=== PATIENT | male | born 1970 | race Caucasian/White ===

== ENCOUNTER 2018-01-28 13:56 | Emergency (ER) | payer MEDICAID ==
[~2018-01-28] VITALS: Ht 188 cm; Wt 151.0 kg
[~2018-01-28 13:56] MED LIST: AMLO5TAB2 PO; ASPI-621 PO; ATOR20TA9 PO; CARV-39 PO; CHLO25TA PO; ENAL20TA PO; FURO40TA6 PO; LISI-170 PO; METO25TA35 PO; POTA20PA25 PO; SPIR25TA PO
[2018-01-28 14:03] VITALS: BP 119/77
== END 2018-01-28 15:06 | disposition home or self-care (01) ==
LOC: MERGE 14:30 → ED 14:30
DX: H10.32 Unspecified acute conjunctivitis, left eye (principal); J06.9 Acute upper respiratory infection, unspecified; I10 Essential (primary) hypertension
CPT/HCPCS: 99283

== ENCOUNTER 2018-02-13 12:20 | Emergency (ER) | payer MEDICAID ==
[~2018-02-13] VITALS: Ht 185.4 cm; Wt 143.1 kg
[2018-02-13] MEDS ORDERED: PROPARACAINE OPHTH 0.5%, 15ML EACHEYE ONE (13:30)
[2018-02-13] MEDS ORDERED: FLUORESCEIN OPHTHALMIC 1 MG STRIP EACHEYE ONE (13:30)
[2018-02-13] MEDS ORDERED: FLUORESCEIN OPHTHALMIC 1 MG STRIP ONE (13:32)
[2018-02-13] MEDS ORDERED: PROPARACAINE OPHTH 0.5%, 15ML ONE (13:32)
[2018-02-13 13:57] VITALS: BP 166/109
== END 2018-02-13 14:33 | disposition home or self-care (01) ==
LOC: ED 13:20
DX: S05.02XA Injury of conjunctiva and corneal abrasion without foreign body, left eye, initial encounter (principal); X58.XXXA Exposure to other specified factors, initial encounter; H10.32 Unspecified acute conjunctivitis, left eye; I10 Essential (primary) hypertension; E11.9 Type 2 diabetes mellitus without complications; I25.2 Old myocardial infarction; I50.9 Heart failure, unspecified; Y93.89 Activity, other specified; Y99.8 Other external cause status; Y92.89 Other specified places as the place of occurrence of the external cause
CPT/HCPCS: 99283

== ENCOUNTER 2019-01-14 03:47 | Inpatient (IN) | payer BC, OTHER ==
[~2019-01-14] VITALS: Ht 188 cm; Wt 135.0 kg
[~2019-01-14 03:47] MED LIST changes: +AMLO-150 PO; -AMLO5TAB2 PO; -ASPI-621 PO; +ASPI81TA45 PO; +ATOR20TA37 PO; -ATOR20TA9 PO
--- NOTE | 2019-01-14 04:31 | NUR ---
FIRST CONTACT WITH PT. PT C/O BILATERAL LEG SWELLING X A FEW WEEKS AND REDNESS X A FEW MONTHS. PT ALSO C/O SOB/HTN. PT'S DENIES ANY PAIN/N/V/D AT THIS TIME. SINUS TACHY ON CARDIAC MONITORS RATE 90'S AT THIS TIME. PT'S AOX4. RESPS EVEN AND UNLABORED. ALL MONITORS IN PLACE. CALL LIGHT WITHIN REACH. AWAITING EDMD ASSESSMENT AT THIS TIME.
--- NOTE | 2019-01-14 04:38 | NUR ---
PT WAS SUPPOSE TO TAKE ALL HOME MEDS FOR HTN BUT HE HASN'T TAKEN THEM FOR 1 YEAR.
[2019-01-14 05:25] LABS: BASOPHILS # (AUTO) 0.02 x10^3/uL (0-0.1); BASOPHILS % (AUTO) 0 % (0-1); EOSINOPHILS # (AUTO) 0.13 x10^3/uL (0-0.4); EOSINOPHILS % (AUTO) 2 % (1-7); LYMPHOCYTES # (AUTO) 1.33 x10^3/uL (1-3.4); LYMPHOCYTES % (AUTO) 20 % (22-44); MD NO; MEAN CORPUSCULAR HEMOGLOBIN 28.5 pg (27.5-34.5); MEAN CORPUSCULAR HGB CONC 32.4 g/dL (33.2-36.2); MEAN CORPUSCULAR VOLUME 87.9 fL (81-97); MEAN PLATELET VOLUME 9.8 fL (7.4-10.4); MONOCYTES # (AUTO) 0.43 x10^3/uL (0.2-0.8); MONOCYTES % (AUTO) 7 % (2-9); NEUTROPHILS % (AUTO) 72 % (42-75); PLATELET COUNT 191 x10^3/uL (130-400); RED BLOOD COUNT 5.53 x10^6/uL (4.38-5.82); RED CELL DISTRIBUTION WIDTH 15.3 % (9.4-14.8)
[2019-01-14] MEDS ORDERED: NITROGLYCERIN OINT 2%, 1GM TP ONE ×2 (05:25→05:30)
[2019-01-14] MEDS ORDERED: FUROSEMIDE 20 MG/2 ML ONE (05:25)
[2019-01-14 05:28] LABS: INTERNATIONAL NORMALIZED RATIO 1.35 (0.93-1.1); PROTHROMBIN TIME 14.1 Seconds (9.6-11.5)
[2019-01-14 05:30] LABS: ALBUMIN 3.1 g/dL (3.4-5.0); ANION GAP 7 mmol/L (5-15); CALCIUM 8.3 mg/dL (8.5-10.1); CHLORIDE 106 mmol/L (98-107)
[2019-01-14] MEDS ORDERED: FUROSEMIDE 40 MG/4 ML IV ONE (05:30)
--- NOTE | 2019-01-14 05:35 | NUR ---
PT MEDICATED PER EMAR. PT TOLERATED WELL. PT'S AOX4. RESPS EVEN AND UNLABORED.
[2019-01-14 05:37] LABS: ALANINE AMINOTRANSFERASE 38 U/L (12-78); ALKALINE PHOSPHATASE 68 U/L (45-117); BILIRUBIN,TOTAL 1.1 mg/dL (0.2-1.0); CREATININE 1.11 mg/dL (0.7-1.3)
[2019-01-14 05:39] LABS: TROPONIN I 0.175 ng/mL (0.000-0.045)
[2019-01-14] MEDS ORDERED: ASPIRIN 81 MG TABLET CHEW ONE (05:41)
--- NOTE | 2019-01-14 05:43 | NUR ---
PT MEDICATED PER EMAR. PT TOLERATED WELL.
--- NOTE | 2019-01-14 05:46 | NUR ---
PT PROVIDED URINAL. PT VOIDING AT BEDSIDE AT THIS TIME.
[2019-01-14] MEDS ORDERED: ASPIRIN 81 MG TABLET CHEW PO ONE (06:00)
--- NOTE | 2019-01-14 06:19 | NUR ---
PT SITTING IN [facility]. PT'S AOX4. RESPS EVEN AND UNLABORED. ALL MONITORS IN PLACE. CALL LIGHT WITHIN REACH.
--- NOTE | 2019-01-14 06:48 | NUR ---
REPORT GIVEN TO NORI COWART.
--- NOTE | 2019-01-14 06:50 | NUR ---
REPORT FROM MABLE COWART. PT IS SITTING AT THE SIDE OF THE MED, RESPIRATIONS EQUAL AND NON LABORED. NAD. PT IS CONNECTED TO THE MONITOR. CALL LIGHT WITHIN REACH.
--- NOTE | 2019-01-14 07:28 | NUR ---
HOSPITALIST AT BEDSIDE.
[2019-01-14] MEDS ORDERED: ONDANSETRON ODT 4 MG PO PRN (07:30)
[2019-01-14] MEDS ORDERED: ONDANSETRON 2MG/ML, 2ML IVPush PRN (07:30)
--- NOTE | 2019-01-14 07:37 | NUR ---
REPORT GIVEN TO DASIA COWART.
--- NOTE | 2019-01-14 07:43 | NUR ---
LAB AT BEDSIDE.
[2019-01-14 08:03] VITALS: BP 188/92
[2019-01-14 08:08] LABS: HEMOGLOBIN A1C 11.7 % (4.2-6.3)
[2019-01-14] MEDS: FUROSEMIDE 40 MG/4 ML IV SCH ×2 (08:29→16:21)
[2019-01-14] MEDS: LISINOPRIL 10 MG TABLET PO SCH ×2 (08:30→20:43)
[2019-01-14] MEDS: POTASSIUM CHLORIDE 20 MEQ TAB.ER.PRT PO SCH ×2 (08:30→16:21)
[2019-01-14] MEDS: ENOXAPARIN 40 MG/0.4 ML SQ SCH (08:33)
[2019-01-14] MEDS: CARVEDILOL 6.25 MG TABLET PO SCH ×2 (08:33→16:21)
[2019-01-14] MEDS: INSULIN LISPRO 100 UNITS/ML, PEN SQ-INSULIN SCH ×4 (09:09→20:44)
[2019-01-14 11:37] VITALS: BP 132/78
[2019-01-14 13:54] VITALS: BP 144/97
[2019-01-14 16:16] VITALS: BP 152/89
[2019-01-14 17:50] LABS: TROPONIN I 0.145 ng/mL (0.000-0.045)
[2019-01-14 19:37] VITALS: BP 139/87
[2019-01-15 00:56] VITALS: BP 147/97
[2019-01-15 05:26] LABS: BASOPHILS # (AUTO) 0.02 x10^3/uL (0-0.1); BASOPHILS % (AUTO) 0 % (0-1); EOSINOPHILS # (AUTO) 0.15 x10^3/uL (0-0.4); EOSINOPHILS % (AUTO) 2 % (1-7); LYMPHOCYTES # (AUTO) 1.74 x10^3/uL (1-3.4); LYMPHOCYTES % (AUTO) 28 % (22-44); MD NO; MEAN CORPUSCULAR HEMOGLOBIN 28.8 pg (27.5-34.5); MEAN CORPUSCULAR HGB CONC 32.5 g/dL (33.2-36.2); MEAN CORPUSCULAR VOLUME 88.5 fL (81-97); MONOCYTES # (AUTO) 0.42 x10^3/uL (0.2-0.8); MONOCYTES % (AUTO) 7 % (2-9); NEUTROPHILS # (AUTO) 3.98 x10^3/uL (1.8-6.8); NEUTROPHILS % (AUTO) 63 % (42-75); PLATELET COUNT 191 x10^3/uL (130-400); RED BLOOD COUNT 5.74 x10^6/uL (4.38-5.82); RED CELL DISTRIBUTION WIDTH 15.4 % (9.4-14.8)
[2019-01-15 05:32] VITALS: BP 187/123
[2019-01-15] MEDS: CARVEDILOL 6.25 MG TABLET PO SCH (05:33)
[2019-01-15] MEDS: ASPIRIN 81 MG TABLET EC PO SCH (05:33)
[2019-01-15 05:39] LABS: ALBUMIN 3.1 g/dL (3.4-5.0); ANION GAP 5 mmol/L (5-15); CALCIUM 8.8 mg/dL (8.5-10.1); CHLORIDE 101 mmol/L (98-107)
[2019-01-15 05:42] LABS: ALANINE AMINOTRANSFERASE 37 U/L (12-78); ALKALINE PHOSPHATASE 71 U/L (45-117); CHOL/HDL RATIO 5.6; CHOLESTEROL, TOTAL 152 mg/dL (140-239); CREATININE 1.24 mg/dL (0.7-1.3); HDL CHOL % 18 % (26-37); HDL CHOLESTEROL (DIRECT) 27 mg/dL (40-60); LDL CHOLESTEROL,CALCULATED 102 mg/dL (54-169); LDL/HDL RATIO 3.8 (0.5-3.0); TOTAL PROTEIN 6.7 g/dL (6.4-8.2); TRIGLYCERIDES 113 mg/dL (50-200); VLDL CHOLESTEROL 23 mg/dL (0-25)
[2019-01-15] MEDS: LABETALOL 5MG/ML, 20ML IVPush PRN (05:52)
[2019-01-15 06:12] VITALS: BP 152/102
[2019-01-15] MEDS: FUROSEMIDE 40 MG/4 ML IV SCH ×2 (07:29→16:57)
[2019-01-15] MEDS: INSULIN LISPRO 100 UNITS/ML, PEN SQ-INSULIN SCH ×4 (07:30→21:06)
[2019-01-15] MEDS: POTASSIUM CHLORIDE 20 MEQ TAB.ER.PRT PO SCH ×2 (07:30→16:57)
[2019-01-15] MEDS: CARVEDILOL 12.5 MG TABLET PO SCH ×2 (07:30→17:00)
[2019-01-15] MEDS: LISINOPRIL 10 MG TABLET PO SCH ×2 (07:30→20:31)
[2019-01-15 08:33] VITALS: BP 152/102
[2019-01-15] MEDS: ENOXAPARIN 40 MG/0.4 ML SQ SCH (10:11)
[2019-01-15 13:07] VITALS: BP 142/95
[2019-01-15 19:18] VITALS: BP 138/92
[2019-01-16] VITALS (8 sets, daily range): BP systolic 135–164; BP diastolic 85–123
[2019-01-16] MEDS: LABETALOL 5MG/ML, 20ML IVPush PRN (01:45)
[2019-01-16] MEDS: ASPIRIN 81 MG TABLET EC PO SCH (05:17)
[2019-01-16] MEDS: CARVEDILOL 12.5 MG TABLET PO SCH ×2 (05:17→17:47)
[2019-01-16 05:47] LABS: ANION GAP 4 mmol/L (5-15); CALCIUM 8.4 mg/dL (8.5-10.1); CHLORIDE 102 mmol/L (98-107); CREATININE 1.17 mg/dL (0.7-1.3)
[2019-01-16] MEDS: FUROSEMIDE 40 MG/4 ML IV SCH ×2 (08:23→17:46)
[2019-01-16] MEDS: POTASSIUM CHLORIDE 20 MEQ TAB.ER.PRT PO SCH ×2 (08:23→17:46)
[2019-01-16] MEDS: ENOXAPARIN 40 MG/0.4 ML SQ SCH (08:23)
[2019-01-16] MEDS: LISINOPRIL 10 MG TABLET PO SCH ×2 (08:23→20:35)
[2019-01-16] MEDS: INSULIN LISPRO 100 UNITS/ML, PEN SQ-INSULIN SCH ×4 (08:53→21:05)
[2019-01-16] MEDS: INSULIN GLARGINE 100 UNITS/ML, PEN SQ-INSULIN SCH (21:06)
[2019-01-17 01:28] VITALS: BP 145/98
[2019-01-17 05:40] VITALS: BP 151/98
[2019-01-17] MEDS: CARVEDILOL 12.5 MG TABLET PO SCH ×2 (05:41→20:25)
[2019-01-17] MEDS: ASPIRIN 81 MG TABLET EC PO SCH (05:41)
[2019-01-17 05:46] LABS: ANION GAP 4 mmol/L (5-15); CALCIUM 8.4 mg/dL (8.5-10.1); CHLORIDE 102 mmol/L (98-107); CREATININE 1.08 mg/dL (0.7-1.3)
[2019-01-17 07:43] VITALS: BP 125/80
[2019-01-17] MEDS: POTASSIUM CHLORIDE 20 MEQ TAB.ER.PRT PO SCH ×2 (08:09→20:24)
[2019-01-17] MEDS: FUROSEMIDE 40 MG/4 ML IV SCH ×2 (08:09→20:24)
[2019-01-17] MEDS: ENOXAPARIN 40 MG/0.4 ML SQ SCH (08:09)
[2019-01-17] MEDS: LISINOPRIL 10 MG TABLET PO SCH ×2 (08:10→20:25)
[2019-01-17] MEDS: INSULIN LISPRO 100 UNITS/ML, PEN SQ-INSULIN SCH ×4 (08:10→20:32)
[2019-01-17 13:29] VITALS: BP 158/113
[2019-01-17 19:20] VITALS: BP 169/97
[2019-01-17] MEDS: INSULIN GLARGINE 100 UNITS/ML, PEN SQ-INSULIN SCH (20:32)
[2019-01-17] MEDS: ACETAMINOPHEN 325 MG TABLET PO PRN (22:31)
[2019-01-18] VITALS (15 sets, daily range): BP systolic 132–169; BP diastolic 71–112
[2019-01-18] MEDS: LABETALOL 5MG/ML, 20ML IVPush PRN ×2 (02:01→13:06)
[2019-01-18] MEDS: CARVEDILOL 12.5 MG TABLET PO SCH ×2 (05:19→18:14)
[2019-01-18] MEDS: ASPIRIN 81 MG TABLET EC PO SCH (05:19)
[2019-01-18 05:29] LABS: BASOPHILS # (AUTO) 0.02 x10^3/uL (0-0.1); BASOPHILS % (AUTO) 0 % (0-1); EOSINOPHILS % (AUTO) 2 % (1-7); LYMPHOCYTES # (AUTO) 1.38 x10^3/uL (1-3.4); LYMPHOCYTES % (AUTO) 26 % (22-44); MD NO; MEAN CORPUSCULAR HEMOGLOBIN 28.8 pg (27.5-34.5); MEAN CORPUSCULAR HGB CONC 32.6 g/dL (33.2-36.2); MEAN CORPUSCULAR VOLUME 88.3 fL (81-97); MEAN PLATELET VOLUME 9.7 fL (7.4-10.4); MONOCYTES # (AUTO) 0.47 x10^3/uL (0.2-0.8); MONOCYTES % (AUTO) 9 % (2-9); NEUTROPHILS # (AUTO) 3.27 x10^3/uL (1.8-6.8); NEUTROPHILS % (AUTO) 62 % (42-75); PLATELET COUNT 162 x10^3/uL (130-400); RED BLOOD COUNT 5.66 x10^6/uL (4.38-5.82); RED CELL DISTRIBUTION WIDTH 15.5 % (9.4-14.8)
[2019-01-18 05:36] LABS: CHLORIDE 106 mmol/L (98-107)
[2019-01-18 05:40] LABS: ANION GAP 4 mmol/L (5-15); CALCIUM 8.7 mg/dL (8.5-10.1); CREATININE 0.99 mg/dL (0.7-1.3)
[2019-01-18] MEDS: INSULIN LISPRO 100 UNITS/ML, PEN SQ-INSULIN SCH ×4 (08:02→21:24)
[2019-01-18] MEDS: ENOXAPARIN 40 MG/0.4 ML SQ SCH (08:12)
[2019-01-18] MEDS: FUROSEMIDE 40 MG/4 ML IV SCH ×2 (08:13→18:13)
[2019-01-18] MEDS: POTASSIUM CHLORIDE 20 MEQ TAB.ER.PRT PO SCH ×3 (08:13→18:14)
[2019-01-18] MEDS: LISINOPRIL 10 MG TABLET PO SCH (08:14)
[2019-01-18] MEDS: ACETAMINOPHEN 325 MG TABLET PO PRN (08:30)
[2019-01-18] MEDS ORDERED: LISINOPRIL 10 MG TABLET PO ONE (13:00)
[2019-01-18] MEDS ORDERED: KETOROLAC 30 MG/1 ML IVPush ONE (15:30)
[2019-01-18] MEDS ORDERED: LABETALOL 300 MG TABLET PO SCH (18:00)
[2019-01-18] MEDS: HYDROCHLOROTHIAZIDE 12.5 MG CAPSULE PO SCH (18:13)
[2019-01-18] MEDS: LISINOPRIL 20 MG TABLET PO SCH (21:00)
[2019-01-18] MEDS: INSULIN GLARGINE 100 UNITS/ML, PEN SQ-INSULIN SCH (21:25)
[2019-01-19 00:27] VITALS: BP 158/96
[2019-01-19] MEDS: ACETAMINOPHEN 325 MG TABLET PO PRN ×3 (03:16→21:22)
[2019-01-19 05:48] VITALS: BP 149/89
[2019-01-19] MEDS: ASPIRIN 81 MG TABLET EC PO SCH (05:56)
[2019-01-19] MEDS: CARVEDILOL 12.5 MG TABLET PO SCH ×2 (05:57→18:29)
[2019-01-19] MEDS: INSULIN LISPRO 100 UNITS/ML, PEN SQ-INSULIN SCH ×4 (07:00→21:27)
[2019-01-19 07:06] VITALS: BP 149/94
[2019-01-19 08:15] LABS: ALBUMIN 2.9 g/dL (3.4-5.0); ANION GAP 4 mmol/L (5-15); CALCIUM 8.2 mg/dL (8.5-10.1); CHLORIDE 105 mmol/L (98-107); CREATININE 0.81 mg/dL (0.7-1.3)
[2019-01-19] MEDS: FUROSEMIDE 40 MG/4 ML IV SCH ×2 (08:18→16:35)
[2019-01-19] MEDS: HYDROCHLOROTHIAZIDE 12.5 MG CAPSULE PO SCH (08:19)
[2019-01-19] MEDS: LISINOPRIL 20 MG TABLET PO SCH ×2 (08:19→21:19)
[2019-01-19] MEDS: ENOXAPARIN 40 MG/0.4 ML SQ SCH (08:19)
[2019-01-19] MEDS: POTASSIUM CHLORIDE 20 MEQ TAB.ER.PRT PO SCH (08:21)
[2019-01-19 12:57] VITALS: BP 157/99
[2019-01-19] MEDS ORDERED: SPIRONOLACTONE 25 MG TABLET PO ONE (16:00)
[2019-01-19 18:28] VITALS: BP 130/76
[2019-01-19 20:08] VITALS: BP 158/88
[2019-01-19] MEDS: INSULIN GLARGINE 100 UNITS/ML, PEN SQ-INSULIN SCH (21:27)
[2019-01-20 03:20] VITALS: BP 166/91
[2019-01-20] MEDS: CARVEDILOL 12.5 MG TABLET PO SCH ×2 (06:41→18:06)
[2019-01-20] MEDS: ASPIRIN 81 MG TABLET EC PO SCH (06:41)
[2019-01-20 06:42] VITALS: BP 138/89
[2019-01-20] MEDS: INSULIN LISPRO 100 UNITS/ML, PEN SQ-INSULIN SCH ×4 (07:00→20:57)
[2019-01-20] MEDS: FUROSEMIDE 40 MG/4 ML IV SCH ×2 (08:16→16:46)
[2019-01-20] MEDS: ACETAMINOPHEN 325 MG TABLET PO PRN ×2 (08:16→22:21)
[2019-01-20] MEDS: SPIRONOLACTONE 25 MG TABLET PO SCH (08:16)
[2019-01-20] MEDS: HYDROCHLOROTHIAZIDE 12.5 MG CAPSULE PO SCH (08:17)
[2019-01-20] MEDS: POTASSIUM CHLORIDE 20 MEQ TAB.ER.PRT PO SCH (08:17)
[2019-01-20] MEDS: ENOXAPARIN 40 MG/0.4 ML SQ SCH (08:17)
[2019-01-20] MEDS: LISINOPRIL 20 MG TABLET PO SCH ×2 (08:17→20:53)
[2019-01-20 08:26] LABS: ALBUMIN 2.9 g/dL (3.4-5.0); ANION GAP 3 mmol/L (5-15); CALCIUM 8.4 mg/dL (8.5-10.1); CHLORIDE 103 mmol/L (98-107); CREATININE 0.94 mg/dL (0.7-1.3)
[2019-01-20 14:00] VITALS: BP 161/105
[2019-01-20 15:27] VITALS: BP 159/97
[2019-01-20 20:40] VITALS: BP 152/88
[2019-01-20] MEDS: INSULIN GLARGINE 100 UNITS/ML, PEN SQ-INSULIN SCH (20:57)
[2019-01-21 02:55] VITALS: BP_SYST 184; BP_SYST 190; BP_DIAS 110; BP_DIAS 95
[2019-01-21] MEDS: LABETALOL 5MG/ML, 20ML IVPush PRN (03:32)
[2019-01-21 05:32] VITALS: BP 175/114
[2019-01-21] MEDS: CARVEDILOL 12.5 MG TABLET PO SCH ×2 (05:34→17:29)
[2019-01-21] MEDS: ASPIRIN 81 MG TABLET EC PO SCH (05:34)
[2019-01-21 05:38] LABS: ALBUMIN 3.1 g/dL (3.4-5.0); ANION GAP 3 mmol/L (5-15); CALCIUM 8.8 mg/dL (8.5-10.1); CHLORIDE 103 mmol/L (98-107); CREATININE 0.89 mg/dL (0.7-1.3)
[2019-01-21 07:23] VITALS: BP 160/79
[2019-01-21] MEDS: INSULIN LISPRO 100 UNITS/ML, PEN SQ-INSULIN SCH ×4 (07:37→20:50)
[2019-01-21] MEDS: FUROSEMIDE 40 MG/4 ML IV SCH ×2 (08:00→16:30)
[2019-01-21] MEDS: POTASSIUM CHLORIDE 20 MEQ TAB.ER.PRT PO SCH (08:09)
[2019-01-21] MEDS: ENOXAPARIN 40 MG/0.4 ML SQ SCH (08:35)
[2019-01-21] MEDS: SPIRONOLACTONE 25 MG TABLET PO SCH (08:35)
[2019-01-21] MEDS: LISINOPRIL 20 MG TABLET PO SCH ×2 (08:36→20:49)
[2019-01-21] MEDS: HYDROCHLOROTHIAZIDE 12.5 MG CAPSULE PO SCH (08:36)
[2019-01-21] MEDS: ACETAMINOPHEN 325 MG TABLET PO PRN ×2 (11:39→20:48)
[2019-01-21] MEDS ORDERED: SPIRONOLACTONE 25 MG TABLET PO ONE (12:30)
[2019-01-21 12:39] VITALS: BP 169/93
[2019-01-21 13:25] VITALS: BP 151/93
[2019-01-21 20:35] VITALS: BP 163/99
[2019-01-21] MEDS: DOCUSATE 100 MG CAPSULE PO SCH (20:49)
[2019-01-21] MEDS: INSULIN GLARGINE 100 UNITS/ML, PEN SQ-INSULIN SCH (20:50)
[2019-01-22 03:33] VITALS: BP 174/128
[2019-01-22] MEDS: LABETALOL 5MG/ML, 20ML IVPush PRN (03:37)
[2019-01-22 04:59] LABS: ALBUMIN 3.3 g/dL (3.4-5.0); ANION GAP 5 mmol/L (5-15); CALCIUM 8.9 mg/dL (8.5-10.1); CHLORIDE 101 mmol/L (98-107); CREATININE 0.94 mg/dL (0.7-1.3)
[2019-01-22 05:03] VITALS: BP 166/110
[2019-01-22] MEDS: ASPIRIN 81 MG TABLET EC PO SCH (05:04)
[2019-01-22] MEDS: CARVEDILOL 12.5 MG TABLET PO SCH ×2 (05:06→16:59)
[2019-01-22] MEDS: INSULIN LISPRO 100 UNITS/ML, PEN SQ-INSULIN SCH ×4 (07:00→20:42)
[2019-01-22 07:08] VITALS: BP 159/88
[2019-01-22] MEDS: HYDROCHLOROTHIAZIDE 12.5 MG CAPSULE PO SCH (08:23)
[2019-01-22] MEDS: DOCUSATE 100 MG CAPSULE PO SCH ×2 (08:23→20:42)
[2019-01-22] MEDS: LISINOPRIL 20 MG TABLET PO SCH ×2 (08:23→20:42)
[2019-01-22] MEDS: SPIRONOLACTONE 50 MG TABLET PO SCH (08:24)
[2019-01-22] MEDS: ENOXAPARIN 40 MG/0.4 ML SQ SCH (08:24)
[2019-01-22] MEDS: POLYETHYLENE GLYCOL 17 GM PACKET PO SCH (08:24)
[2019-01-22] MEDS: FUROSEMIDE 40 MG/4 ML IV SCH ×2 (08:24→16:59)
[2019-01-22] MEDS: POTASSIUM CHLORIDE 20 MEQ TAB.ER.PRT PO SCH (08:24)
[2019-01-22 13:34] VITALS: BP 156/81
[2019-01-22 15:56] LABS: BASOPHILS # (AUTO) 0.02 x10^3/uL (0-0.1); BASOPHILS % (AUTO) 0 % (0-1); EOSINOPHILS % (AUTO) 2 % (1-7); LYMPHOCYTES # (AUTO) 1.41 x10^3/uL (1-3.4); LYMPHOCYTES % (AUTO) 26 % (22-44); MD NO; MEAN CORPUSCULAR HEMOGLOBIN 29.1 pg (27.5-34.5); MEAN CORPUSCULAR HGB CONC 33.3 g/dL (33.2-36.2); MEAN CORPUSCULAR VOLUME 87.1 fL (81-97); MEAN PLATELET VOLUME 9.3 fL (7.4-10.4); MONOCYTES # (AUTO) 0.52 x10^3/uL (0.2-0.8); MONOCYTES % (AUTO) 10 % (2-9); NEUTROPHILS # (AUTO) 3.43 x10^3/uL (1.8-6.8); NEUTROPHILS % (AUTO) 63 % (42-75); PLATELET COUNT 193 x10^3/uL (130-400); RED BLOOD COUNT 5.93 x10^6/uL (4.38-5.82); RED CELL DISTRIBUTION WIDTH 15.3 % (9.4-14.8)
[2019-01-22 16:08] LABS: ALBUMIN 3.5 g/dL (3.4-5.0); ANION GAP 5 mmol/L (5-15); CALCIUM 9.4 mg/dL (8.5-10.1); CHLORIDE 100 mmol/L (98-107); CREATININE 0.95 mg/dL (0.7-1.3)
[2019-01-22 20:35] VITALS: BP 166/102
[2019-01-22] MEDS: INSULIN GLARGINE 100 UNITS/ML, PEN SQ-INSULIN SCH (20:41)
[2019-01-22] MEDS: ACETAMINOPHEN 325 MG TABLET PO PRN (20:42)
[2019-01-23 02:40] VITALS: BP 188/122
[2019-01-23] MEDS: LABETALOL 5MG/ML, 20ML IVPush PRN (04:01)
[2019-01-23] MEDS: CARVEDILOL 12.5 MG TABLET PO SCH ×2 (06:07→17:22)
[2019-01-23] MEDS: ASPIRIN 81 MG TABLET EC PO SCH (06:08)
[2019-01-23] MEDS: INSULIN LISPRO 100 UNITS/ML, PEN SQ-INSULIN SCH ×4 (07:00→21:18)
[2019-01-23 07:08] VITALS: BP 166/98
[2019-01-23 08:10] LABS: ALBUMIN 3.2 g/dL (3.4-5.0); ANION GAP 5 mmol/L (5-15); CALCIUM 9.1 mg/dL (8.5-10.1); CHLORIDE 103 mmol/L (98-107); CREATININE 0.77 mg/dL (0.7-1.3)
[2019-01-23] MEDS: FUROSEMIDE 40 MG/4 ML IV SCH (08:12)
[2019-01-23] MEDS: POTASSIUM CHLORIDE 20 MEQ TAB.ER.PRT PO SCH (08:13)
[2019-01-23] MEDS: SPIRONOLACTONE 50 MG TABLET PO SCH (08:13)
[2019-01-23] MEDS: HYDROCHLOROTHIAZIDE 12.5 MG CAPSULE PO SCH (08:13)
[2019-01-23] MEDS: LISINOPRIL 20 MG TABLET PO SCH ×2 (08:14→21:17)
[2019-01-23] MEDS: ENOXAPARIN 40 MG/0.4 ML SQ SCH (08:14)
[2019-01-23] MEDS: POLYETHYLENE GLYCOL 17 GM PACKET PO SCH (08:16)
[2019-01-23] MEDS: DOCUSATE 100 MG CAPSULE PO SCH ×2 (08:16→19:30)
[2019-01-23 10:00] VITALS: BP 113/84
[2019-01-23 12:48] VITALS: BP 115/77
[2019-01-23] MEDS ORDERED: FUROSEMIDE 20 MG/2 ML IV SCH (17:00)
[2019-01-23 17:20] VITALS: BP 149/103
[2019-01-23 20:00] VITALS: BP 135/75
[2019-01-23] MEDS: INSULIN GLARGINE 100 UNITS/ML, PEN SQ-INSULIN SCH (21:18)
[2019-01-24 00:49] VITALS: BP 136/87
[2019-01-24] MEDS: ASPIRIN 81 MG TABLET EC PO SCH (06:15)
[2019-01-24] MEDS: CARVEDILOL 12.5 MG TABLET PO SCH ×2 (06:15→18:42)
[2019-01-24] MEDS: INSULIN LISPRO 100 UNITS/ML, PEN SQ-INSULIN SCH ×4 (07:00→21:58)
[2019-01-24 07:53] VITALS: BP 132/90
[2019-01-24 09:00] LABS: BASOPHILS # (AUTO) 0.03 x10^3/uL (0-0.1); BASOPHILS % (AUTO) 1 % (0-1); EOSINOPHILS # (AUTO) 0.14 x10^3/uL (0-0.4); EOSINOPHILS % (AUTO) 2 % (1-7); LYMPHOCYTES # (AUTO) 1.86 x10^3/uL (1-3.4); LYMPHOCYTES % (AUTO) 28 % (22-44); MD NO; MEAN CORPUSCULAR HEMOGLOBIN 28.4 pg (27.5-34.5); MEAN CORPUSCULAR HGB CONC 32.5 g/dL (33.2-36.2); MEAN CORPUSCULAR VOLUME 87.4 fL (81-97); MEAN PLATELET VOLUME 9.3 fL (7.4-10.4); MONOCYTES # (AUTO) 0.66 x10^3/uL (0.2-0.8); MONOCYTES % (AUTO) 10 % (2-9); NEUTROPHILS # (AUTO) 3.84 x10^3/uL (1.8-6.8); NEUTROPHILS % (AUTO) 59 % (42-75); PLATELET COUNT 212 x10^3/uL (130-400); RED BLOOD COUNT 5.88 x10^6/uL (4.38-5.82); RED CELL DISTRIBUTION WIDTH 15.2 % (9.4-14.8)
[2019-01-24] MEDS: POLYETHYLENE GLYCOL 17 GM PACKET PO SCH (09:00)
[2019-01-24 09:14] LABS: ANION GAP 3 mmol/L (5-15); CALCIUM 9.2 mg/dL (8.5-10.1); CHLORIDE 100 mmol/L (98-107); CREATININE 0.97 mg/dL (0.7-1.3)
[2019-01-24] MEDS: ENOXAPARIN 40 MG/0.4 ML SQ SCH (11:45)
[2019-01-24] MEDS: SPIRONOLACTONE 50 MG TABLET PO SCH (11:45)
[2019-01-24] MEDS: POTASSIUM CHLORIDE 20 MEQ TAB.ER.PRT PO SCH (11:45)
[2019-01-24] MEDS: LISINOPRIL 20 MG TABLET PO SCH ×2 (11:45→21:57)
[2019-01-24] MEDS: DOCUSATE 100 MG CAPSULE PO SCH ×2 (11:45→21:57)
[2019-01-24 12:53] VITALS: BP 120/82
[2019-01-24] MEDS: FUROSEMIDE 40 MG/4 ML IV SCH ×2 (13:38→18:42)
[2019-01-24 18:40] VITALS: BP 128/72
[2019-01-24 20:00] VITALS: BP 107/68
[2019-01-24 21:55] VITALS: BP 129/75
[2019-01-24] MEDS: INSULIN GLARGINE 100 UNITS/ML, PEN SQ-INSULIN SCH (21:59)
[2019-01-25 02:00] VITALS: BP 134/86
[2019-01-25 05:31] LABS: BASOPHILS # (AUTO) 0.02 x10^3/uL (0-0.1); BASOPHILS % (AUTO) 0 % (0-1); EOSINOPHILS # (AUTO) 0.15 x10^3/uL (0-0.4); EOSINOPHILS % (AUTO) 2 % (1-7); LYMPHOCYTES # (AUTO) 1.95 x10^3/uL (1-3.4); LYMPHOCYTES % (AUTO) 29 % (22-44); MD NO; MEAN CORPUSCULAR HGB CONC 33.3 g/dL (33.2-36.2); MEAN PLATELET VOLUME 9.6 fL (7.4-10.4); MONOCYTES # (AUTO) 0.72 x10^3/uL (0.2-0.8); MONOCYTES % (AUTO) 11 % (2-9); NEUTROPHILS # (AUTO) 3.81 x10^3/uL (1.8-6.8); NEUTROPHILS % (AUTO) 57 % (42-75); PLATELET COUNT 202 x10^3/uL (130-400); RED CELL DISTRIBUTION WIDTH 15.2 % (9.4-14.8)
[2019-01-25 05:46] LABS: ANION GAP 5 mmol/L (5-15); CALCIUM 9.1 mg/dL (8.5-10.1); CHLORIDE 100 mmol/L (98-107)
[2019-01-25 05:48] LABS: CREATININE 0.92 mg/dL (0.7-1.3)
[2019-01-25 06:40] VITALS: BP 150/90
[2019-01-25] MEDS: ASPIRIN 81 MG TABLET EC PO SCH (06:44)
[2019-01-25] MEDS: CARVEDILOL 12.5 MG TABLET PO SCH (06:44)
[2019-01-25] MEDS: FUROSEMIDE 40 MG/4 ML IV SCH (06:44)
[2019-01-25] MEDS: INSULIN LISPRO 100 UNITS/ML, PEN SQ-INSULIN SCH ×2 (06:55→11:00)
[2019-01-25] MEDS: DOCUSATE 100 MG CAPSULE PO SCH (07:52)
[2019-01-25] MEDS: POTASSIUM CHLORIDE 20 MEQ TAB.ER.PRT PO SCH (07:52)
[2019-01-25] MEDS: SPIRONOLACTONE 50 MG TABLET PO SCH (07:53)
[2019-01-25] MEDS: ENOXAPARIN 40 MG/0.4 ML SQ SCH (07:53)
[2019-01-25] MEDS: LISINOPRIL 20 MG TABLET PO SCH (07:53)
[2019-01-25] MEDS ORDERED: FUROSEMIDE 40 MG TABLET PO SCH (08:00)
[2019-01-25 08:55] VITALS: BP 128/80
[2019-01-25] MEDS: POLYETHYLENE GLYCOL 17 GM PACKET PO SCH (09:00)
[2019-01-25] MEDS ORDERED: CLON0.1T22 PO (10:51)
[2019-01-25] MEDS ORDERED: POTA20TA6 PO (10:51)
[2019-01-25] MEDS ORDERED: METF500T PO (10:51)
[2019-01-25] MEDS ORDERED: CARV12.543 PO (10:51)
[2019-01-25] MEDS ORDERED: SPIR50TA PO (10:51)
[2019-01-25] MEDS ORDERED: INSU100I11 SQ-INSULIN (10:51)
[2019-01-25] MEDS ORDERED: LISI-170 PO (10:51)
[2019-01-25] MEDS ORDERED: FURO40TA6 PO (10:51)
[2019-01-25] MEDS ORDERED: INSU100I13 SQ-INSULIN (10:51)
[2019-01-25] MEDS ORDERED: ALPH1COM EXT (10:54)
[2019-01-25] MEDS ORDERED: BLOO-1267 BC (10:54)
== END 2019-01-25 16:42 | disposition home or self-care (01) | DRG 292 ==
LOC: ED 04:50 → EDIP 06:16 → 5SO 07:53 → DCLOUNGE 01-25 14:49
PROVIDERS: ADMIT Hospitalist; ATTEND Hospitalist
DX: I11.0 Hypertensive heart disease with heart failure (principal); E46 Unspecified protein-calorie malnutrition; E66.2 Morbid (severe) obesity with alveolar hypoventilation; J98.11 Atelectasis; E11.65 Type 2 diabetes mellitus with hyperglycemia; I50.43 Acute on chronic combined systolic (congestive) and diastolic (congestive) heart failure; I42.9 Cardiomyopathy, unspecified; E87.6 Hypokalemia; G47.33 Obstructive sleep apnea (adult) (pediatric); I25.2 Old myocardial infarction; I27.29 Other secondary pulmonary hypertension; I35.0 Nonrheumatic aortic (valve) stenosis; I87.2 Venous insufficiency (chronic) (peripheral); I87.8 Other specified disorders of veins; R09.02 Hypoxemia; T50.2X5A Adverse effect of carbonic-anhydrase inhibitors, benzothiadiazides and other diuretics, initial encounter; Z79.84 Long term (current) use of oral hypoglycemic drugs; Z79.899 Other long term (current) drug therapy; Z91.128 Patient's intentional underdosing of medication regimen for other reason; Z91.14 Patient's other noncompliance with medication regimen; Z99.81 Dependence on supplemental oxygen; Z68.38 Body mass index [BMI] 38.0-38.9, adult; Y92.89 Other specified places as the place of occurrence of the external cause
CPT/HCPCS: 36415; 36600; 71045; 80048; 80053; 80061; 80069; 82088; 82803; 82962; 83036; 83835; 83880; 84244; 84443; 84484; 85025; 85610; 85730; 90656; 93005; 93306; 96374; G0378; J1650; J1885; J1940; J1815